=== PATIENT | male | born 1990 ===

== ENCOUNTER 2018-05-27 11:05 | Emergency (ER) | payer OTHER ==
[~2018-05-27] VITALS: Ht 170.2 cm; Wt 74.8 kg
== END 2018-05-27 17:16 | disposition home or self-care (01) ==
LOC: ER 11:05
DX: R07.89 Other chest pain (principal); R30.0 Dysuria; R10.13 Epigastric pain

== ENCOUNTER 2020-10-11 14:04 | Emergency (ER) | payer OTHER ==
[~2020-10-11] VITALS: Ht 170.2 cm; Wt 70.3 kg
== END 2020-10-11 19:48 | disposition home or self-care (01) ==
LOC: ER 14:04
DX: J31.2 Chronic pharyngitis (principal); Z11.52 Encounter for screening for COVID-19

== ENCOUNTER 2021-10-25 09:48 | Outpatient (CLI) | payer OTHER | END 2021-10-25 09:49 | disposition home or self-care (01) | LOC: LAB 09:48 | PROVIDERS: ATTEND Internal Medicine Cardiovascular Disease | DX: E03.9 Hypothyroidism, unspecified (principal); I10 Essential (primary) hypertension; E11.9 Type 2 diabetes mellitus without complications; E78.2 Mixed hyperlipidemia; E55.9 Vitamin D deficiency, unspecified; N40.0 Benign prostatic hyperplasia without lower urinary tract symptoms ==